=== PATIENT | male | born 1995 | race Caucasian/White ===

== ENCOUNTER 2020-06-08 15:33 | Outpatient (CLI) | payer BC ==
--- NOTE | 2020-06-08 16:04 | ULT ---
SCROTAL ULTRASOUND INDICATION: Right testicular mass TECHNIQUE: Grayscale, color Doppler spectral Doppler images were obtained of the scrotum. COMPARISON: None. FINDINGS: Right Testicle: Size: 4.5 x 2.1 x 3.0 cm. Flow: There is normal vascular flow to the right testicle Hydrocele: No right-sided hydrocele is evident Epididymis: There is a 1.2 cm right epididymal head cyst. There is a 2.5 mm calcification involving the tunica albuginea of the anterior right testicle. Left Testicle: Size: 4.2 x 2.0 x 2.5 cm. Flow: There is normal vascular flow to left testicle. Hydrocele: No left sided hydrocele seen. Epididymis: There is a 1.7 mm left epididymal head cyst. Additional findings: None. Impression: 1. No evidence of testicular torsion or intratesticular mass. 2. 1.2 cm right epididymal head cyst. 1 7 mm left epididymal head cyst. 3. 2.5 mm anterior right tunica albuginea calcification. This is likely benign.
== END 2020-06-08 15:34 | disposition home or self-care (01) ==
LOC: BICULT 15:33
PROVIDERS: ATTEND Specialist
DX: N50.89 Other specified disorders of the male genital organs (principal); N50.3 Cyst of epididymis
CPT/HCPCS: 76870; 93976